=== PATIENT | male | born 1990 | race Caucasian/White ===

== ENCOUNTER 2018-04-19 17:44 | Emergency (ER) | payer MEDICAID, OTHER ==
[~2018-04-19] VITALS: Ht 175.3 cm; Wt 56.0 kg
[~2018-04-19 17:44] MED LIST: HYDR-569 PO
[2018-04-19 17:54] VITALS: BP 131/84
[2018-04-19] MEDS ORDERED: HYDROcodone/acetaminophen 5mg/325mg tablet PO ONE (19:10)
== END 2018-04-19 19:56 | disposition home or self-care (01) ==
LOC: ER 17:49
DX: S52.501A Unspecified fracture of the lower end of right radius, initial encounter for closed fracture (principal); S50.311A Abrasion of right elbow, initial encounter; S90.511A Abrasion, right ankle, initial encounter; Z88.0 Allergy status to penicillin; Z79.899 Other long term (current) drug therapy; V00.131A Fall from skateboard, initial encounter; Y93.89 Activity, other specified; Y92.89 Other specified places as the place of occurrence of the external cause; Y99.8 Other external cause status
CPT/HCPCS: 29125; 73110; 73610; 99284

== ENCOUNTER 2018-05-17 10:49 | Outpatient (CLI) | payer MEDICAID ==
[2018-05-17 10:47] VITALS: BP 107/79
== END 2018-05-17 11:23 | disposition home or self-care (01) ==
LOC: ORTHO 10:49
PROVIDERS: ATTEND Nurse Practitioner Family
DX: S69.91XA Unspecified injury of right wrist, hand and finger(s), initial encounter (principal); S99.911A Unspecified injury of right ankle, initial encounter; M79.89 Other specified soft tissue disorders; M25.471 Effusion, right ankle; F17.200 Nicotine dependence, unspecified, uncomplicated; Z88.0 Allergy status to penicillin; X58.XXXA Exposure to other specified factors, initial encounter; Y93.89 Activity, other specified; Y92.89 Other specified places as the place of occurrence of the external cause; Y99.8 Other external cause status
CPT/HCPCS: 73110; 73610; 99213

== ENCOUNTER → 2018-09-10 | Emergency (ER) | payer MEDICAID ==
[~2018-09-10] VITALS: Ht 175.3 cm; Wt 135.0 kg
[~2018-09-10] MED LIST changes: +FLUC200T PO; +HYDR-4383 PO; -HYDR-569 PO; +SULF1TAB49 PO; +fluconazole 150mg tablet PO ONE
[2018-09-10 10:14] VITALS: BP 117/73
== END | disposition home or self-care (01) ==
LOC: ER 06:15
DX: M79.661 Pain in right lower leg (principal); B36.8 Other specified superficial mycoses; F12.90 Cannabis use, unspecified, uncomplicated; F15.90 Other stimulant use, unspecified, uncomplicated; F11.90 Opioid use, unspecified, uncomplicated; Z88.0 Allergy status to penicillin; Z79.899 Other long term (current) drug therapy
CPT/HCPCS: 93971; 99284

== ENCOUNTER 2021-08-11 03:10 | Emergency (ER) | payer MEDICAID ==
[~2021-08-11] VITALS: Ht 175.3 cm; Wt 61.4 kg
[~2021-08-11 03:10] MED LIST changes: -SULF1TAB49 PO; -fluconazole 150mg tablet PO ONE
[2021-08-11 03:15] VITALS: BP 104/81
[2021-08-11] MEDS ORDERED: cloNIDine 0.1 mg tablet PO ONE (04:15)
== END 2021-08-11 04:24 | disposition home or self-care (01) ==
LOC: ER 03:11
DX: F11.23 Opioid dependence with withdrawal (principal); Z88.0 Allergy status to penicillin; Z79.899 Other long term (current) drug therapy
CPT/HCPCS: 99281